=== PATIENT | male | born 1960 | race Caucasian/White ===

== ENCOUNTER 2016-10-12 20:33 | Emergency (ER) | payer BC ==
[2016-10-12 21:09] VITALS: BP 128/72
[2016-10-12] MEDS ORDERED: CEPHALEXIN 500 MG CAPSULE PO ONE (21:29)
[2016-10-12] MEDS ORDERED: DIPH/PERTUSS(ACELL)/TETANUS VAC/PF 0.5 ML SYR (>=10YO) IM ONE (21:29)
[2016-10-12] MEDS ORDERED: SULFAMETHOXAZOLE/TRIMETHOPRIM 800-160 MG TABLET PO ONE (21:29)
--- NOTE | 2016-10-12 21:35 | ER Document Report ---
HPI - HPI Patient complains to provider of: Spider bite Pain Level: 2 Context: Patient is a 56-year-old male who comes emergency department for chief complaint of red areas on the hand and also on the elbow of the right arm, also reports an area on his left arm that is starting to get irritated, area on the elbow has become red, warm, increasingly tender. He states on Wednesday he was in [place] and he went into an outhouse and multiple small spiders crawled over his arm and him, he did see the spiders. He states he has researched and found there are no poisonous spiders in [place] but when the area became red he became concerned. He reports minimal itching. Patient's tetanus is not up-to- date within 5 years. He denies history of diabetes. Only past medical history reported is hyperlipidemia. - DERM Skin Color: Normal Past Medical History - General Information source: Patient - Social History Smoking Status: Never Smoker Drug Abuse: None Lives with: Family Family History: Reviewed & Not Pertinent Patient has suicidal ideation: No Patient has homicidal ideation: No - Past Medical History Cardiac Medical History: Reports: Hx Hypercholesterolemia Renal/ Medical History: Denies: Hx Peritoneal Dialysis Surgical Hx: Negative - Immunizations Immunizations up to date: No Hx Diphtheria, Pertussis, Tetanus Vaccination: Yes Vertical Provider Document - CONSTITUTIONAL General Appearance: WD/WN, No Apparent Distress - INFECTION CONTROL TRAVEL OUTSIDE OF THE [place] IN LAST 30 DAYS: Yes COUNTRY TRAVELED TO/FROM: [place] - HEENT HEENT: Atraumatic, Normocephalic - NECK Neck: Normal Inspection - RESPIRATORY Respiratory: Breath Sounds Normal, No Respiratory Distress O2 Sat by Pulse Oximetry: 96 - CARDIOVASCULAR Cardiovascular: Regular Rate, Regular Rhythm - GI/ABDOMEN Gastrointestinal: Abdomen Soft, Abdomen Non-Tender - BACK Back: Normal Inspection - DERM Integumentary: Rash - There are 2 isolated areas of erythema and tenderness with slight warmth over the base of the hand below the fifth digit, ulcer there is redness over the right elbow with slight heat and tenderness, there is slight swelling of the bursa, the bursa is actually nontender, no induration or fluctuance, there is also a small area on the left forearm with similar appearance. No streaking, normal range of motion of all extremities, normal distal neurovascular exam. Course - Re-evaluation Re-evalutation: Patient's examination is consistent with cellulitis at the site of spider bites , there is no induration or fluctuance over any of the areas, there is no soft swelling over any of the areas, areas have isolated erythema, heat, and mild tenderness. No fever, no diabetes, tetanus updated. Discussed monitoring and return precautions, treating with antibiotics, patient states understanding and agreement. Because of mild bursitis, patient also be given a Medrol Dosepak after he asked for this instead of anti-inflammatories. - Vital Signs Vital signs: Temp Pulse Resp BP Pulse Ox 97.5 F 77 16 128/72 H 96 10/12/16 20:59 10/12/16 20:59 10/12/16 20:59 10/12/16 20:59 10/12/16 20:59 Discharge - Discharge Clinical Impression: Spider bite Qualifiers: Encounter type: initial encounter Injury intent: accidental or unintentional Qualified Code(s): T63.301A - Toxic effect of unspecified spider venom, accidental (unintentional), initial encounter Condition: Stable Disposition: HOME, SELF-CARE Instructions: Tetanus Immunization Given ([facility]) Additional Instructions: Areas are concerning for developing cellulitis, secondary bacterial infection after the bites. Take the antibiotics as directed to completion, monitor the areas for any spreading redness, swelling, or developing fever. Take the Medrol Dosepak as prescribed because of the bursitis/inflammation of the elbow in addition to this. Return immediately for any concerning or worsening symptoms. Prescriptions: Cephalexin Monohydrate [Keflex 500 mg Capsule] 500 mg PO QID #28 capsule Methylprednisolone [Medrol Dosepack (4 mg/Tab) 21 Tab/Dosepak] 4 mg PO ASDIR PRN #21 [id number] PRN Reason: Sulfamethoxazole/Trimethoprim [Bactrim Ds Tablet] 1 each PO BID #14 tablet Referrals: VIDHYA HARRIS MD [Primary Care Provider] - Follow up as needed
== END 2016-10-12 21:47 | disposition home or self-care (01) ==
LOC: ER 20:33
DX: T63.301A Toxic effect of unspecified spider venom, accidental (unintentional), initial encounter (principal); L53.0 Toxic erythema; Y92.89 Other specified places as the place of occurrence of the external cause; Z23 Encounter for immunization
CPT/HCPCS: 90471; 90715; 99281